=== PATIENT | female | born 1995 | race Caucasian/White ===

== ENCOUNTER 2022-03-07 10:21 | Emergency (ER) | payer OTHER ==
[~2022-03-07] VITALS: Ht 157.5 cm; Wt 72.6 kg
[~2022-03-07 10:21] MED LIST: Amoxicillin500 MG PO; BENZ100A PO; Bactrim Ds Tab1 EACH PO; CEPH500 PO; CIPRSO RIGHTEYE; Cipro500 MG PO; Flagyl500 MG PO; GUAI120S1 PO; Keflex500 MG PO; Nitrofurantoin100 MG PO; Norco 5-325 Ta1 EACH PO; ONDA8 PO; Percocet 5-3251 EACH PO; Prozac20 MG; Pyridium100 MG PO; Pyridium200 MG PO; Ultram50 MG PO; Zofran Odt4 MG SL; Zofran Odt8 MG SL
[2022-03-07] MEDS ORDERED: SERT100 PO (10:49)
[2022-03-07] MEDS ORDERED: ONDA4ODT MM (11:23)
== END 2022-03-07 11:36 | disposition home or self-care (01) ==
LOC: ER 10:21
DX: U07.1 COVID-19 (principal); F17.210 Nicotine dependence, cigarettes, uncomplicated; Z88.8 Allergy status to other drugs, medicaments and biological substances
CPT/HCPCS: 99282